=== PATIENT | male | born 2000 | race Caucasian/White ===

== ENCOUNTER → 2018-02-27 | Outpatient (CLI) | payer BC ==
[~2018-02-27] MED LIST: None at this Time
== END | disposition home or self-care (01) ==
LOC: STAR 07:25
PROVIDERS: ATTEND Orthopaedic Surgery
DX: Z02.9 Encounter for administrative examinations, unspecified (principal)

== ENCOUNTER 2018-03-06 10:46 | Day surgery (SDC) | payer BC ==
[~2018-03-06] VITALS: Ht 180.3 cm; Wt 72.4 kg
[~2018-03-06 10:46] MED LIST changes: +BUPIVACAINE 0.25% ONE; +CEFAZOLIN 1,000 MG ONE; +EPINEPHRINE 1 MG/ML, 1ML ONE; +FENTANYL PF 100 MCG/2ML ONE; +LIDOCAINE-MPF 2% ,5ML ONE; +MIDAZOLAM 1 MG/ML, 2ML ONE; +PROPOFOL 10 MG/ML, 20ML ONE; +ROCURONIUM 10MG/ML,5ML ONE; +SUCCINYLCHOLINE 20 MG/ML, 10ML ONE
[2018-03-06] MEDS ORDERED: LACTATED RINGERS 1,000 ML IV SCH (11:07)
[2018-03-06] MEDS ORDERED: ACETAMINOPHEN 500 MG TABLET ONE (11:12)
[2018-03-06] MEDS ORDERED: ONDANSETRON ODT 8 MG ONE (11:14)
[2018-03-06] MEDS ORDERED: ONDANSETRON ODT 8 MG PO ONE (11:30)
[2018-03-06] MEDS ORDERED: ACETAMINOPHEN 500 MG TABLET PO ONE (11:30)
[2018-03-06] MEDS ORDERED: DIAZEPAM 5 MG/ML, 2ML IVPush PRN (13:30)
[2018-03-06] MEDS ORDERED: MEPERIDINE/PF 25MG/0.5ML IVPush PRN (13:30)
[2018-03-06] MEDS ORDERED: METOCLOPRAMIDE 5 MG/ML, 2ML IV PRN (13:30)
[2018-03-06] MEDS ORDERED: OXYcodone 5 MG/5 ML ORAL.SOL UDC PO PRN (13:30)
[2018-03-06] MEDS ORDERED: HYDROmorphone 1 MG/ML, 1ML IV PRN (13:30)
[2018-03-06] MEDS: FENTANYL PF 100 MCG/2ML IV PRN ×2 (14:01→14:10)
[2018-03-06] MEDS ORDERED: OXYcodone 5 MG/5 ML ORAL.SOL UDC ONE (14:02)
[2018-03-06] MEDS ORDERED: FENTANYL PF 100 MCG/2ML ONE (14:08)
== END 2018-03-06 16:07 | disposition home or self-care (01) ==
LOC: OUT 10:46
PROVIDERS: ATTEND Orthopaedic Surgery
DX: M24.111 Other articular cartilage disorders, right shoulder (principal); M25.311 Other instability, right shoulder; M75.111 Incomplete rotator cuff tear or rupture of right shoulder, not specified as traumatic; Z98.890 Other specified postprocedural states; Z79.899 Other long term (current) drug therapy
CPT/HCPCS: 29806; C1713; J0171; J0330; J0690; J2250; J2704; J3010; J3490; J7120; Q0162